=== PATIENT | female | born 1950 | race Caucasian/White ===

== ENCOUNTER 2022-05-01 10:16 | Emergency (ER) | payer MEDICARE, SELFPAY ==
[2022-05-01 10:40] VITALS: BP 113/67; PULSE 64; RESP 18; TEMP 36.6; O2SAT 99; BMI 28.9
[2022-05-01 10:48] LABS: Apearance,Urine Clear (Clear); Bilirubin,Urine Negative (Negative); Blood, Urine Negative (Negative); Color,Urine Yellow (Yellow); Glucose,Urine (UA) Negative (Negative); Ketones,Urine Negative (Negative); Protein,Urine Negative (Negative); Specific Gravity, Urine 1.015 (1.005-1.030); UTC Leukocyte Esterase,Urine Trace (Negative); UTC Nitrate,Urine Negative (Negative); Urobilinogen,Urine 0.2 EU/dl (0.2)
[2022-05-01 10:53] VITALS: BP 113/67; PULSE 64; RESP 18; TEMP 36.6; O2SAT 99
--- NOTE | 2022-05-01 10:54 | HMH.EDUTC ---
[facility] [place] Clinical Impression: UTI (urinary tract infection) Qualifiers: Urinary tract infection type: site unspecified Hematuria presence: without hematuria Qualified Code(s): N39.0 - Urinary tract infection, site not specified Disposition: Home, Self-Care Condition on Discharge: Good Instructions: DI for Urinary Tract Infection (UTI), Urinary Tract Infection, Cephalexin Additional Instructions: *Increase fluids. Water not Soda or Tea *Start antibiotic immediately and be sure to take as ordered for the FULL length of time although you should start to see improvement over the next 48 hours *Be SURE to follow up anytime for new or worsening symptoms with your family doctor. AND in 48 hours for urine culture results with your family doctor, if you do not have a doctor then you may call back to the [facility] for urine culture results and further treatment. We do recommend that you choose and establish care with a Primary Care Physician. AND follow up with them in 10-14 days to repeat UA to ensure infection is resolved and blood no longer present *Be sure to let your PCP know that we sent urine cultures from the [facility] so they can follow up to ensure that you area the on the correct antibiotic Call your doctor office and make appointment for 48 hours (2 days from today) to follow up and get the results of your urine culture and further treatment Prescriptions: cephALEXin [cephALEXin 500mg capsule*] 500 mg PO BID 7 Days #14 cap Transmission Status: Pending to Clinic [facility] Referrals: Provider,Referral, [Primary Care Provider] - As needed Time of Disposition: 10:58 Medical Decision Making - Finesse Inquiry Pt receiving controlled substance: No Finesse was queried for this patient: No Vital Signs: 05/01/22 10:40 05/01/22 10:53 Temperature 97.9 F 97.9 F Temperature Source Oral Pulse Rate 64 Pulse Rate [Right Brachial] 64 Respiratory Rate 18 18 Blood Pressure 113/67 Blood Pressure [Right Arm] 113/67 Blood Pressure Mean [Right Arm] 82 Blood Pressure Source [Right Arm] Automatic Cuff Blood Pressure Position [Right Arm] Sitting 02 Sat by Pulse Oximetry 99 Oxygen Delivery Method Room Air - Lab Data Lab Results 05/01/22 10:27: Urine Color Yellow, Urine Appearance Clear, Urine pH 7.0, Ur Specific [place] 1.015, Urine Protein Negative, Urine Glucose (UA) Negative, Urine Ketones Negative, Urine Blood Negative, Urine Nitrate Negative, Urine Bilirubin Negative, Urine Urobilinogen 0.2, Ur Leukocyte Esterase Trace Orders (Tests/Meds): ORDERS Category Date Time Status Urine Culture Stat Micro 05/01/22 10:49 Ordered Medical Decision Narrative: Patient state that she has taken cephalexin in the past without complication or reactions [facility] [place] - General Stated complaint: possible bladder infection Time Seen by Provider: 05/01/22 10:54 Mode of Arrival: Ambulatory Source of Information: Patient Limitations: No Limitations Description of Symptoms (Recalled from Triage Doc. by RN): PATIENT C/O BURNING WITH URINATION, URINARY FREQUENCY, AND BLADDER SPASMS X 3 DAYS HEENT Symptoms (Recalled from RN notes): No Resp Symptoms (Recalled from RN notes): No Skin Symptoms (Recalled from RN notes): No MS Symptoms (Recalled from RN notes): No Functional Status (Recalled from RN notes): WNL - History of Present Illness Provider Complaint: Pateint states that she thinks she is getting a bladder infection States that she has had them before and having similar symptoms States that she has been having frequency and urgency along with feeling like she has spasms like she has done in the past when she has one so she came in to get checked - Related Data Home Medications Medication Instructions Recorded Confirmed Acyclovir 200 mg PO DAILY 04/15/19 04/15/19 Amlodipine Besylate/Benazepril 1 cap PO DAILY 04/15/19 04/15/19 [Amlodipine-Benazepril 10-20 mg] Levothyroxine Sodium 75 mcg PO DAILY 04/15/19
== END 2022-05-01 11:05 | disposition home or self-care (01) ==
PROVIDERS: Emergency Provider Nurse Practitioner
DX: N39.0 Urinary tract infection, site not specified (principal)
CPT/HCPCS: 81003; 87086; 87088; 87186; 99212; G0463

== ENCOUNTER 2023-11-06 10:33 | Emergency (ER) | payer MEDICARE, SELFPAY ==
[2023-11-06] VITALS (7 sets, daily range): BP systolic 122–156; BP diastolic 60–93; PULSE 62–84; RESP 16–18; TEMP 36.6; O2SAT 96–100; BMI 29.2
--- NOTE | 2023-11-06 10:39 | ECG_ITS ---
APPROVED REPORT Exam: Resting ECG HR:74 bpm ECG Measurements Heart Rate 74 AXES VA 172 P 47 QRSd 77 QRS 54 QT 366 T 61 QTc 393 Conclusion SINUS RHYTHM NORMAL ECG UNCONFIRMED REPORT Electronically signed by : Marco Huntley MD 11/06/2023 21:45:19
--- NOTE | 2023-11-06 11:15 | XR_ITS ---
FINAL REPORT CLINICAL HISTORY: fall COMPARISON: 02/26/2023 FINDINGS: A single portable view of the chest was obtained. The heart size and pulmonary vascularity are within normal limits. The mediastinum is within normal limits. No acute pulmonary abnormality is identified. The bony thorax is intact. IMPRESSION: No active cardiopulmonary disease. Reviewed, Interpreted and Dictated by Norberto Machado III, MD Transcribed by Karina Penn Authenticated and [facility]
--- NOTE | 2023-11-06 11:15 | XR_ITS ---
FINAL REPORT CLINICAL HISTORY: fall, R hip pain FINDINGS: Right hip Three views were obtained. There is no acute fracture or dislocation. There are mild degenerative changes. No soft tissue abnormality is identified. IMPRESSION: No acute process. If symptoms are severe or persist, MRI may be helpful. Reviewed, Interpreted and Dictated by Norberto Machado III, MD Transcribed by Juanis Louis Authenticated and [facility]
--- NOTE | 2023-11-06 11:15 | CT_ITS ---
FINAL REPORT CLINICAL HISTORY: fall, head trauma COMPARISON: None FINDINGS: Axial CT images of the cervical spine were obtained without contrast. Sagittal and coronal reformatted images were also obtained. This study was performed with techniques to keep radiation doses as low as reasonably achievable (ALARA). Individualized dose reduction techniques using automated exposure control or adjustment of mA and/or kV according to the patient's size were employed. There is no evidence of fracture or dislocation. There is mild anterolisthesis of C3 on C4 and C4 on C5. There is mild and moderate degenerative change. There is multilevel neuroforaminal narrowing, greatest on the right at C5-6. There is no evidence of canal stenosis. No paraspinous soft tissue abnormality is seen. Limited images of the upper thorax are unremarkable. IMPRESSION: Degenerative changes without acute bony abnormality identified. Reviewed, Interpreted and Dictated by Norberto Machado III, MD Transcribed by Karina Penn Authenticated and [facility]
--- NOTE | 2023-11-06 11:15 | CT_ITS ---
FINAL REPORT CLINICAL HISTORY: fall, head trauma COMPARISON: None FINDINGS: Axial images of the head were obtained without contrast. Coronal reformatted images were also obtained.This study was performed with techniques to keep radiation doses as low as reasonably achievable (ALARA). Individualized dose reduction techniques using automated exposure control or adjustment of mA and/or kV according to the patient's size were employed. There is no evidence of intracranial hemorrhage or mass. The ventricular size is within normal limits. There is no evidence of shift of the midline structures. No abnormal extra axial fluid collection is identified. No skull abnormality is seen on the bone window images. IMPRESSION: No acute intracranial abnormality. Reviewed, Interpreted and Dictated by Norberto Machado III, MD Transcribed by Karina Penn Authenticated and [facility]
--- NOTE | 2023-11-06 11:19 | ED_ITS ---
Discharge Plan Disposition Patient Disposition: Home, Self-Care Chief Complaint: Fall Prescriptions Prescriptions: No Action cephalexin 500 MG capsule 500 mg PO BID 7 Days Qty: 14 0RF levothyroxine 75 MCG tablet 75 mcg PO DAILY acyclovir 200 MG capsule 200 mg PO DAILY amlodipine-benazepril 1 EACH capsule 1 cap PO DAILY prednisone 10 MG tablet 10 mg PO BID 3 Days Qty: 6 0RF azithromycin 250 MG tablet 250 mg PO UD DOSE PK Qty: 6 0RF Rx Instructions: Take two (2) tablets today, then one (1) tablet days #2 thru #5 Referrals Follow up/Referrals: Provider,Referral, MD [Referring] - See instructions Activity Restrictions/Add. Instructions Additional Instructions/Restrictions: Call your family doctor to establish care for this visit to the emergency department and schedule follow-up within 48 hours to ensure improvement. If you have any worsening of your condition or any other concerning signs or symptoms, return to the emergency department or your primary care doctor for further evaluation. Clinical Impressions Clinical Impression: Fall, Closed head injury Discharge ED Provider: Vernon Rodgers General Adult HPI General Chief complaint: Fall Stated complaint: Fall Time Seen by Provider: 11/06/23 10:40 Mode of Arrival: Wheelchair Source of Information: Patient and Relative Limitations: No Limitations Description of Symptoms (Recalled from ER Triage Doc. by RN): pt presents to ED with c/o slurred speech. daughter reports she called to speak to pt approx 0815, and the pt has slurred speech. pt reports a fall approx 0800 with a hit to her head. no LOC, no blood thinner. History of Present Illness HPI narrative: 73-year-old history of hypertension, hyperlipidemia, senile purpura not on anticoagulation presenting with fall. Patient states that last night, 11/05, she took a benzodiazepine and melatonin to go to sleep. Woke up today to phone call from her daughter. Daughter states that patient sounded slurred and she could barely understand her. Patient states that she had just woken up and remembers the incident, does not feel that her speech was slurred. Patient states that shortly after phone call, she stood up out of bed too quickly, twisted around too quickly, and fell on her right hip, which has been giving her pain and troubles through the recent past. Unable to get up secondary to generalized weakness. Patient's called family to have them help pick her up and she was brought to the ER. Patient denies vision changes, nausea, vomiting, headache, neck pain, back pain, chest pain, shortness of breath, Syncope, fevers or chills, malaise, or any other concerns. She truly believes this is from standing up too quickly losing her balance. Related Data Home Medications Medication Instructions Recorded Confirmed acyclovir 200 mg capsule 200 mg PO DAILY UNK 04/15/19 04/15/19 amlodipine 10 mg-benazepril 20 mg 1 cap PO DAILY BLOOD PRESSURE 04/15/19 04/15/19 capsule levothyroxine 75 mcg tablet 75 mcg PO DAILY THYROID 04/15/19 04/15/19 Previous Rx's Medication Instructions Recorded azithromycin 250 mg tablet 250 mg PO UD DOSE PK #6 tabs 04/15/19 prednisone 10 mg tablet 10 mg PO BID 3 days #6 tabs 04/15/19 cephalexin 500 mg capsule 500 mg PO BID 7 days #14 caps 05/01/22 Allergies Allergy/AdvReac Type Severity Reaction Status Date / Time influenza virus vaccine qs Allergy Verified 05/01/22 10:52 [id number] (65 years up) [From Fluad Quad (65y up)(PF)] levofloxacin [From Levaquin] Allergy Verified 04/15/19 20:05 oseltamivir [From Tamiflu] Allergy Verified 04/15/19 20:05 phenazopyridine Allergy Verified 04/15/19 20:05 [From Pyridium] Sulfa (Sulfonamide Allergy Verified 04/15/19 20:05 Antibiotics) vaccine adjuvant emulsion Allergy Verified 05/01/22 10:52 [id number] [From Fluad Quad (65y up)(PF)] [facility] Disclaimer: The information contained in this section may have been updated after the patient was seen, as this information can be updated by other users. Social History Smoking Status: Never smoker alcohol intake: never current occupational status: other Travel in the last 8 weeks: None ROS Obtained: Yes All systems reviewed & no additional complaints except as documented Physical Exam General General appearance: alert and in no apparent distress Head Head exam: atraumatic and normocephalic Eye Eye exam: Present normal appearance, PERRL and EOMI ENT ENT exam: Present mucous membranes moist Neck Neck exam: Present normal inspection, full ROM and trachea midline Respiratory Respiratory exam: Absent respiratory distress, wheezes, stridor, accessory muscle use or prolonged expiratory phase Cardiovascular Cardiovascular exam: Present normal rhythm Abdominal Exam Abdominal exam: Present soft; Absent distention, tenderness, guarding, rebound or rigidity Extremities Exam Extremities exam: Present other (10 is overlying right greater trochanter. No true hip tenderness.); Absent edema Neurological Exam Neurological exam: Present alert, oriented X3, CN II-XII intact and normal gait; Absent motor sensory deficit Skin Skin exam: Present warm, dry and other (purpura across BL UE and LE); Absent diaphoresis or erythema Medical Decision Making Medical Records Medical records reviewed: Yes I reviewed the patient's medical records. Finesse Inquiry Pt receiving controlled substance: No Finesse was queried for this patient: No Vital Signs: 11/06/23 10:34 11/06/23 11:01 11/06/23 11:31 Temperature 97.8 F Temperature Source Oral Pulse Rate 71 73 Pulse Rate [Left Radial] 84 Respiratory Rate 16 18 18 Blood Pressure 153/93 H 134/71 Blood Pressure [Right Arm] 156/76 H Blood Pressure Mean 120 92 Blood Pressure Mean [Right Arm] 102 02 Sat by Pulse Oximetry 98 96 96 Oxygen Delivery Method Room Air 11/06/23 12:32 11/06/23 13:00 11/06/23 13:30 Temperature Temperature Source Pulse Rate 66 Pulse Rate [Left Radial] Respiratory Rate Blood Pressure 143/79 H 141/86 H 127/60 Blood Pressure [Right Arm] Blood Pressure Mean 89 97 82 Blood Pressure Mean [Right Arm] 02 Sat by Pulse Oximetry 100 Oxygen Delivery Method Lab Data Lab Results 11/06/23 10:35: WBC 9.5, RBC 4.39, Hgb 14.6, Hct 44.4, MCV 101.1 H, MCH 33.2 H, MCHC 32.9, RDW 12.6, Plt Count 442 H, MPV 7.3 L, Neut % (Auto) 56.5, Lymph % (Auto) 34.9, [place] % (Auto) 7.1, Eos % (Auto) 0.7, Baso % (Auto) 0.8, Neut # (Auto) 5.4, Lymph # (Auto) 3.3, [place] # (Auto) 0.7, Eos # (Auto) 0.1, Baso # (Auto) 0.1, Sodium 132 L, Potassium 4.0, Chloride 96 L, Carbon Dioxide 29, Anion Gap 11.0, BUN 11, Creatinine 0.60, Estimated Creat Clear 62, Estimated GFR 98, Est GFR ( Amer) 119, Glucose 91, Calcium 9.5, Total Bilirubin 0.7, AST 31, ALT 28, Alkaline Phosphatase 97, Troponin I < 0.01, NT-Pro-B Natriuret Pep 247 H, Total Protein 7.7, Albumin 4.3, Globulin 3.4 H, Albumin/Globulin Ratio 1.3 11/06/23 11:52: Urine Color Yellow, Urine Appearance Clear, Urine pH 7.5, Ur Specific Star 1.010, Urine Protein Negative, Urine Glucose (UA) Negative, Urine Ketones Negative, Urine Blood Negative, Urine Nitrate Negative, Urine Bilirubin Negative, Urine Urobilinogen 0.2, Ur Leukocyte Esterase Negative, Urine RBC None, Urine WBC Occasional, Ur Squamous Epith Cells 3-5, Urine Bacteria Trace 11/06/23 10:35 11/06/23 10:35 Orders (Tests/Meds): ORDERS Category Date Time Status CT cervical spine wo con Stat Cat Scan 11/06/23 11:[address] head/brain wo con Stat Cat Scan 11/06/23 11:15 Completed Chest XR -- portable [XR chest portable] Stat Exams 11/06/23 11:15 Completed Hip XR right minimum 2 views [XR hip RT 2-3V w/pelvis] Exams 11/06/23 11:15 Taken Stat Brain Natriuretic Peptide Stat Lab 11/06/23 10:35 Completed CBC w/Auto Diff [Complete Blood Count Auto Diff] Stat Lab 11/06/23 10:35 Compl eted CMP [Comprehensive Metabolic Panel] Stat Lab 11/06/23 10:35 Completed Trop I [Troponin I] Stat Lab 11/06/23 10:35 Completed Troponin I Q3H Lab 11/06/23 14:30 Ordered Troponin I Q3H Lab 11/06/23 17:30 Ordered UA [Urinalysis and Microscopic] Stat Lab 11/06/23 11:52 Completed ECG initial [place] Routine Y 11/06/23 10:39 Completed Medical Decision Narrative: 73-year-old history of hypertension, hyperlipidemia, senile purpura not on anticoagulation presenting with fall. Patient states that last night, 2/6, she took a benzodiazepine and melatonin to go to sleep. Woke up today to phone call from her daughter. Daughter states that patient sounded slurred and she could barely understand her. Patient states that she had just woken up and remembers the incident, does not feel that her speech was slurred. Patient states that shortly after phone call, she stood up out of bed too quickly, twisted around too quickly, and fell on her right hip, which has been giving her pain and troubles through the recent past. Unable to get up secondary to generalized weakness. Patient's called family to have them help pick her up and she was brought to the ER. Patient denies vision changes, nausea, vomiting, h eadache, neck pain, back pain, chest pain, shortness of breath, Syncope, fevers or chills, malaise, or any other concerns. She truly believes this is from standing up too quickly losing her balance. History was obtained via conversation with patient, family. On arrival, patient hemodynamically stable, alert, oriented x4, appropriate, GCS 15, moving all extremities spontaneously, pupils equal and reactive to light. Full physical exam performed and significant for NIHSS 0. Cardiac exam within normal limits, no murmurs, gallops, rubs. Lungs are clear to auscultation bilaterally. Abdomen soft, nontender, nondistended. Patient does have purpura on bilateral upper and lower extremities. Neurologically intact. Differential includes intracranial bleed, concussion, mechanical fall from standing, arrhythmia, dehydration, vasovagal versus orthostatic presyncope, medication induced, TIA, among others. Workup independently interpreted and significant for nonactionable CBC or chemistry. Troponin negative. BNP nonactionable. Urinalysis without UTI. Chest x-ray without acute cardiopulmonary disease, hip and pelvis x-rays negative. CT head and C-spine without acute intracranial bleed or bony abnormality. See radiology read for full review of final results. Independent interpretation of EKG shows 74 beats a minute sinus rhythm. No ST or T wave changes concerning for acute ischemia. CO, QRS, QT intervals within normal limits. [place] normal. On reevaluation, patient resting comfortably bed. Given patient presentation, workup, history, this most likely represents fall from standing, likely orthostatic presyncope. Because patient at baseline without signs or symptoms of clinical decompensation, deemed appropriate for discharge. Results were relayed to patient who voiced understanding and were agreeable to outpatient management and follow up. At the time of discharge the patient was hemodynamically stable, tolerating PO, and mobilizing appropriately. Critical Care Critical Care Time Critical Care Time: No
[2023-11-06 11:32] LABS: Chloride 96 mmol/L (98-107); Sodium 132 mmol/L (136-145)
[2023-11-06 11:34] LABS: Blood Urea Nitrogen 11 mg/dl (7-17); Creatinine Clearance Estimated 62 mL/min (50-200); Estimated Glomerular Filt Rate 98 ml/min (>60); GFR (African American) 119 ML/MIN (>60)
[2023-11-06 11:35] LABS: Alanine Aminotransferase 28 U/L (12-78); Albumin Level 4.3 g/dl (3.5-5.0); Albumin/Globulin Ratio 1.3 (1.1-1.8); Alkaline Phosphatase 97 U/L (38-126); Aspartate Amino Transferase 31 U/L (14-36); Bilirubin,Total 0.7 mg/dl (0.2-1.3); Calcium 9.5 mg/dl (8.4-10.2); Carbon Dioxide 29 mmol/L (22.0-30.0); Globulin 3.4 g/dL (1.3-3.2); Glucose 91 mg/dl (74-100); Total Protein,Serum 7.7 g/dl (6.3-8.2)
[2023-11-06 11:42] LABS: Basophils # 0.1 K/mm3 (0-0.2); Basophils % 0.8 % (0.1-2.0); Eosinophils # 0.1 K/mm3 (0.0-0.4); Eosinophils % 0.7 % (0.1-12.0); Hematocrit 44.4 % (37.0-47.0); Hemoglobin 14.6 g/dL (12.2-16.2); Lymphocytes # 3.3 K/mm3 (0.7-4.5); Lymphocytes % 34.9 % (10-50); Mean Corpuscular HGB Conc 32.9 g/dL (31.8-35.4); Mean Corpuscular Hemoglobin 33.2 pg (27.0-31.2); Mean Corpuscular Volume 101.1 fl (81-99); Mean Platelet Volume 7.3 fl (7.4-10.4); Monocytes # 0.7 K/mm3 (0.1-1.0); Monocytes % 7.1 % (1.7-9.3); Neutrophils # 5.4 K/mm3 (1.8-7.8); Neutrophils % 56.5 % (37.0-80.0); Platelet Count 442 K/mm3 (142-424); Red Blood Count 4.39 M/mm3 (4.20-5.40); Red Cell Distribution Width 12.6 % (11.5-17.5); White Blood Count 9.5 K/mm3 (4.8-10.8)
[2023-11-06 11:55] LABS: Troponin I < 0.01 ng/ml (0.00-0.034)
[2023-11-06 12:03] LABS: Appearance,Urine CLEAR (Clear); Bilirubin,Urine Negative (Negative); Blood, Urine Negative (Negative); Color,Urine YELLOW (Yellow); Glucose,Urine (UA) Negative (Negative); Ketones,Urine Negative (Negative); Leukocyte Esterase,Urine Negative (Negative); Nitrate,Urine Negative (Negative); PH,Urine 7.5 (5.0-8.5); Protein,Urine Negative (Negative); Urobilinogen,Urine 0.2 EU/dl (0.2)
[2023-11-06 12:04] LABS: NT Pro Brain Natriuretic Pep. 247 pg/mL (0-125)
[2023-11-06 12:04] LABS: Microscopic, Urine URINE MICROSCOPIC (MICROSCOPIC)
[2023-11-06 12:19] LABS: Bacteria,Urine Trace /lpf; WBC,Urine Occasional #/hpf (0-3)
== END 2023-11-06 14:13 | disposition home or self-care (01) ==
PROVIDERS: Emergency Provider Emergency Medicine; PCP Nurse Practitioner
DX: S09.8XXA Other specified injuries of head, initial encounter (principal); R47.81 Slurred speech; I10 Essential (primary) hypertension; E78.5 Hyperlipidemia, unspecified; W19.XXXA Unspecified fall, initial encounter; M25.551 Pain in right hip
CPT/HCPCS: 70450; 71045; 72125; 73502; 80053; 81001; 83880; 84484; 85025; 93005; 99285